=== PATIENT | female | born 1935 | race Caucasian/White ===

== ENCOUNTER → 2016-06-09 | Outpatient (CLI) | payer MEDICARE, OTHER ==
[~2016-06-09] MED LIST: ALBUTEROL17 GM INH; ASPIRIN PO; ASPIRIN81 M2 PO; ASPIRIN81 MG PO; CELECOXIB200 MG PO; COLCHICINE0.6 M1 PO; GLUCOPHAGE500 M1 PO; HYDROCHLOROTHIA25 MG PO; LEVAQUIN PO; LIPITOR PO; LORATADINE PO; LOTREL 10-20 MG1 CAP PO; LOTREL 10/20 MG1 CAP PO; LYRICA50 MG PO; METFORMIN HCL500 M1 PO; NITROGYLCERIN SUBLINGUAL; NORCO1 TAB 10/3 PO; PREDNISONE PO; PREMARIN PO; PREMARIN0.3 MG PO; SINGULAIR PO; SYMBICORT INH; VITAMIN B122500 MC1 PO; VITAMIN D1000 UNIT PO
--- NOTE | ~2016-06-09 | MY11 ---
[facility] A Service [facility] RADIOLOGY TEXT RESULTS PATIENT: TRISTAN THOMAS LOCATION: [facility] : 34 UNIT #: [id number] AGE: [address]: Jacquelin Vivar MD SEX: F ORDER DR: [id number] [place] [id number] O MR#: [id number] Acc #: [id number] NAME: TRISTAN THOMAS : 1935 SEX: F STUDY DATE/TIME: 06/09/2016 14:42 UNIT: [facility] ROOM: STUDY DESCRIPTION: MY Mammogram Screening Dig You Attending Physician: Jacquelin Vivar M.D. Referring Physician: Jacquelin Vivar M.D. Ordering Physician: Jacquelin Vivar M.D. Primary Care Physician: Jacquelin Vivar M.D. MEDICAL IMAGING REPORT This report is preliminary unless electronic signature is present. EXAM Bilateral Digital Screening Mammogram with CAD INDICATION Breast cancer screening. 80-year-old asymptomatic female who reports a maternal grandmother with breast cancer. COMPARISON 02/26/2015, 01/20/2013, 01/12/2012, 01/06/2011, 12/31/2009, 12/27/2008, 08/25/2007. FINDINGS There are scattered fibroglandular tissues. No suspicious findings are present. IMPRESSION No mammographic evidence of malignancy. Annual screening mammography and clinical breast exam are recommended. A result letter will be sent to the patient. Patients over the age of 40 are entered into a reminder system with target due date for the next mammogram. BIRADS: 1 Negative Dictated by... Lionel Justin M.D. [facility] A [facility] RADIOLOGY TEXT RESULTS PATIENT: TRISTAN THOMAS LOCATION: [facility] : 34 UNIT #: [id number] AGE: [address]: Jacquelin Vivar MD SEX: F ORDER DR: THIS IS AN ELECTRONICALLY VERIFIED REPORT Lionel Justin M.D. at 06/11/2016 10:39 AM EDGAR/sole TD: 06/09/2016 18:55 JOB #: [id number] MEDICAL IMAGING REPORT Page 1 of 1
== END | disposition home or self-care (01) ==
LOC: SMAM 14:04
DX: Z12.31 Encounter for screening mammogram for malignant neoplasm of breast (principal)
CPT/HCPCS: G0202

== ENCOUNTER → 2016-07-30 | Day surgery (SDC) | payer MEDICARE, OTHER ==
--- NOTE | ~2016-07-30 | OR ---
Unit #: [id number] #: [id number] Patient: TRISTAN THOMAS [id number] [address] [place], [place] [address] [id number] O MR#: [id number] NAME: TRISTAN THOMAS ROOM: Date of Procedure: 07/30/2016 Admission Date: 07/30/2016 Surgeon: Shant Karimi M.D. : 1935 Attending Physician: Fabian Karimi Primary Care Physician: Jacquelin Vivar M.D. SUR[facility] CENTER OPERATIVE NOTE PROCEDURE PERFORMED Lumbar epidural steroid injection under x-ray guided needle placement with provider administered conscious sedation. PREOPERATIVE DIAGNOSES 1. Acute lumbar radiculitis. 2. Spinal stenosis, lumbosacral spine. 3. Herniated disk, L2-L3. 4. Degenerative joint disease, lumbosacral spine. 5. Degenerative disk disease, lumbosacral spine. INDICATIONS FOR PROCEDURE The patient presents today with a longstanding history of chronic lumbar radicular pain secondary to her underlying degenerative processes. Her symptoms at present on the right side and compatible with her x-ray studies which documented an L2-L3 herniated disk. She also has what appears to be about a T10 level right-sided case of shingles. She has been experiencing exacerbation of her right-sided radicular pain for approximately 4 to 6 weeks, which has developed crescendo pattern and has failed to respond to her usual ongoing continuous conservative measures. She has been helped in the past with epidural steroid injections which provider her about 60% to 80% relief for approximately 8 to 10 weeks or longer. After discussing risks and benefits of proceeding today with a lumbar approach epidural steroid injection as well as the potential benefits or harmful effects of the epidural steroid injection on the shingles, the patient agreed this would be the appropriate course of action. DESCRIPTION OF PROCEDURE She was then taken to the operating room, where she was prepped and draped in a sterile manner. Standard monitors were applied. She was sedated initially with 2 mg of IV Versed and required an additional 2 mg of IV Versed and 1 mL of IV fentanyl throughout the duration of the procedure. Lumbar epidural space was accessed at the L2-L3 level using loss of resistance technique and x-ray guidance. Needle placement was confirmed with an injection of 2 mL of Omnipaque. Approximately 80% of dye flow was in the superior direction with 20% in the inferior direction this was acceptable and desired. Total x-ray time for this needle placement was 8 seconds. Following successful needle placement confirmation, the patient received an injectate containing 8 mL of normal saline and 80 mg of methylprednisolone. She tolerated this procedure well. She was discharged home with followup instructions, which include an offer to return to this clinic as early as 11/05/2016 if we could be of further Unit #: [id number] #: [id number] Patient: TRISTAN THOMAS A service to her. She was instructed if she was asymptomatic at that time to simply not keep that appointment and to follow up with this office or her primary provider or her referring provider should she have further need of our service. She was also instructed if she felt that she was not getting benefit from these injections to simply stop taking them and to follow up with her primary and/or referring provider. Dictated by... Shaniqua Roche/rico TD: 07/30/2016 09:41 JOB #: [id number] CC: John Stinson M.D. SURGERY CENTER OPERATIVE NOTE Page 1 of 1 X Fabian Karimi MD X PROCEDURE OPERATIVE NOTE
== END | disposition home or self-care (01) ==
LOC: CCSC 08:09
DX: M51.16 Intervertebral disc disorders with radiculopathy, lumbar region (principal); M48.07 Spinal stenosis, lumbosacral region; M51.17 Intervertebral disc disorders with radiculopathy, lumbosacral region; M47.27 Other spondylosis with radiculopathy, lumbosacral region; J45.909 Unspecified asthma, uncomplicated; M19.90 Unspecified osteoarthritis, unspecified site; Z87.01 Personal history of pneumonia (recurrent); Z91.041 Radiographic dye allergy status; Z79.82 Long term (current) use of aspirin; Z79.84 Long term (current) use of oral hypoglycemic drugs; Z79.899 Other long term (current) drug therapy; Z79.1 Long term (current) use of non-steroidal anti-inflammatories (NSAID); Z90.710 Acquired absence of both cervix and uterus; Z98.890 Other specified postprocedural states
CPT/HCPCS: 82947; J1040; J2250; J3010

== ENCOUNTER → 2016-11-05 | Day surgery (SDC) | payer MEDICARE, OTHER ==
--- NOTE | ~2016-11-05 | OR ---
Unit #: [id number] #: [id number] Patient: TRISTAN THOMAS [id number] [address] [place], [place] [address] [id number] O MR#: [id number] NAME: TRISTAN THOMAS ROOM: Date of Procedure: 11/05/2016 Admission Date: 11/05/2016 Surgeon: Shant Karimi M.D. : 1935 Attending Physician: Shant Karimi M.D. Referring Physician: Shant Karimi M.D. Primary Care Physician: Jacquelin Vivar M.D. SURGERY CENTER OPERATIVE NOTE PROCEDURE PERFORMED Lumbar epidural steroid injection under x-ray guided needle placement with provider administered conscious sedation. PREOPERATIVE DIAGNOSES 1. Acute lumbar radiculitis. 2. Spinal stenosis, lumbosacral spine. 3. Herniated disk, L4-L5. 4. Degenerative joint disease, lumbosacral spine. 5. Degenerative disk disease, lumbosacral spine. INDICATIONS FOR PROCEDURE The patient presents today with longstanding history of chronic lumbar radicular pain both right and left-sided due to her underlying degenerative processes. She is generally fairly well managed medically with ongoing medical management and self-directed physical activity. She presents today complaining most notably of left-sided radicular symptoms, which is compatible with her x-ray studies. In the past, she has received epidural steroid injections for this left-sided radiculitis and her amount of relief has been 80% to 100% for 8 to 10 weeks or longer. She currently presents today with a 1 to 2 month history of crescendo pattern of pain, which has broken through her usual conservative management. After discussing risks and benefits of proceeding today with a lumbar approach epidural steroid injection at the L4-L5 level with a return on 02/11/2017 for followup, the patient agreed this would be the appropriate course of action. DESCRIPTION OF PROCEDURE She was then taken to the operating room, where she was prepped and draped in a sterile manner. Standard monitors were applied. She was sedated initially with 2 mg of IV Versed and required an additional 2 mg of IV Versed and 1 mL of IV fentanyl throughout the duration of the procedure. Lumbar epidural space accessed at the L4-L5 level using loss of resistance technique and x-ray guidance. Needle placement was confirmed with injection of 2 mL of Omnipaque. There was good superior and inferior flow at this L4-L5 placed needle. Total x-ray time for this needle placement was 4 seconds. Following successful needle placement confirmation, the patient received an injectate containing 4 mL normal saline and 80 mg of methylprednisolone. She tolerated this procedure well. She was discharged home with followup instructions, which are include return dates as described above. Unit #: [id number] #: [id number] Patient: TRISTAN THOMAS Dictated by... Shaniqua Roche/rico TD: 11/05/2016 20:27 JOB #: [id number] CC: John Stinson M.D. SUR[facility]ERY CENTER OPERATIVE NOTE Page 1 of 1 X Fabian Karimi MD X PROCEDURE OPERATIVE NOTE
== END | disposition home or self-care (01) ==
LOC: CCSC 07:59
DX: G89.29 Other chronic pain (principal); M51.17 Intervertebral disc disorders with radiculopathy, lumbosacral region; M51.16 Intervertebral disc disorders with radiculopathy, lumbar region; M47.27 Other spondylosis with radiculopathy, lumbosacral region; M48.07 Spinal stenosis, lumbosacral region; J45.909 Unspecified asthma, uncomplicated; M19.90 Unspecified osteoarthritis, unspecified site; Z91.041 Radiographic dye allergy status; Z79.84 Long term (current) use of oral hypoglycemic drugs; Z79.82 Long term (current) use of aspirin; Z79.899 Other long term (current) drug therapy; Z90.710 Acquired absence of both cervix and uterus; Z98.890 Other specified postprocedural states
CPT/HCPCS: 82947; J1040; J2250; J3010